=== PATIENT | male | born 1980 | race Hispanic/Latino ===

== ENCOUNTER → 2019-02-01 | Outpatient (CLI) | payer OTHER ==
[~2019-02-01] MED LIST: DIATRIZOATE MEGL/DIATRIZOA SOD 30 ML BTL PO ONE
--- NOTE | 2019-02-01 18:14 | Diagnostic Imaging Report ---
EXAM: CT Abdomen and Pelvis WITH contrast INDICATION: Abdominal Pain COMPARISON: None. TECHNIQUE: Abdomen and pelvis were scanned utilizing a multidetector helical scanner from the lung base to the pubic symphysis after administration of IV contrast. Coronal and sagittal reformations were obtained. Routine protocol was performed. Scan was performed when during portal venous phase. IV CONTRAST: 100 mL of Isovue 370 ORAL CONTRAST: Gastrografin COMPLICATIONS: None RADIATION DOSE: Total DLP: 354 mGy*cm Dose modulation, iterative reconstruction, and/or weight based adjustment of the mA/kV was utilized to reduce the radiation dose to as low as reasonably achievable. FINDINGS: LINES and TUBES: None. LOWER THORAX: Minimal dependent subsegmental atelectasis at both lung bases. No focal consolidation. HEPATOBILIARY: No evidence of focal lesion. No biliary ductal dilation. GALLBLADDER: No radio-opaque stones or sludge. No wall thickening. SPLEEN: No splenomegaly. PANCREAS: No focal masses or ductal dilatation. ADRENALS: No adrenal nodules KIDNEYS/URETERS: Kidneys enhance symmetrically. No evidence of hydronephrosis, solid mass, or stone. GI TRACT: Colonic diverticulosis with no CT evidence of diverticulitis. No evidence of wall thickening or distension. Appendix is normal. PELVIC ORGANS/BLADDER: Unremarkable. LYMPH NODES: No lymphadenopathy. VESSELS: Unremarkable. PERITONEUM / RETROPERITONEUM: No free air or fluid. BONES AND SOFT TISSUES: Unremarkable. CONCLUSION: Colonic diverticulosis with no CT evidence of diverticulitis. No acute findings in the abdomen or pelvis. Signed by: Mary Rosado MD on 02/01/2019 6:11 PM
--- NOTE | 2019-02-01 18:19 | Diagnostic Imaging Report ---
Exam: Bilateral testicular ultrasound. Clinical History: Testicular pain Findings: Sonographic evaluation of the testicles. Both testes are normal in echogenicity and size without intratesticular mass. The right testicle measures 4.0 x 2.1 x 2.7 cm and demonstrates normal blood flow. The right epididymis measures 0.9 x 0.8 x 0.7 cm and appears normal. The left testicle measures 3.8 x 2.1 x 2.6 cm and demonstrates normal blood flow. The left epididymis measures 0.7 x 0.7 x 0.7 cm and appears normal. There are small bilateral hydroceles, right greater than left. Small left varicocele. Impression: Normal symmetric blood flow and echotexture of both testes. Small bilateral hydroceles, right greater than left. Small left varicocele. Signed by: Mary Rosado MD on 02/01/2019 6:16 PM
== END ==
LOC: US 14:09
PROVIDERS: ATTEND Internal Medicine
DX: N45.2 Orchitis (principal); K57.32 Diverticulitis of large intestine without perforation or abscess without bleeding
CPT/HCPCS: 74177; 76870; 93976

== ENCOUNTER → 2019-03-03 | Day surgery (SDC) | payer OTHER ==
[~2019-03-03] MED LIST changes: -DIATRIZOATE MEGL/DIATRIZOA SOD 30 ML BTL PO ONE; +FENTANYL CITRATE/PF 100MCG/2 ML INJ ONE; +HYOSCYAMINE 0.125 MG TAB ONE; +MIDAZOLAM HCL 2 MG/2 ML VIAL ONE; +PROPOFOL IV EMULSION 10 MG/ML 50 ML VIAL ONE
--- OUTSIDE RECORDS SUMMARY | 2019-03-03 08:15 | XMS REPORT ---
Author Author [facility] Address Unknown Phone Unavailable Care Team Providers Care Can Dragger Name Role Phone Niko RODRIGUEZ Unavailable Unavailable Problems This patient has no known problems. Allergies, Adverse Reactions, Alerts This patient has no known allergies or adverse reactions. Medications This patient has no known medications. Results Test Description Test Time Test Comments Text Results Atomic Results Result Comments TESTICULAR 2019-02-01 18:12:00 [place] [address] Patient Name: BARRON RICARDO MR #: [id number] : 1980 Age/Sex: 38/M Req #: [id number] [facility] Physician: Ordered by: RULA RODRIGUEZ MD Report #: [id number] Location: Room/Bed: Procedure: [id number] US/US TESTICULAR Exam Date: 02/01/19 Exam Time: 1504 REPORT STATUS: Signed Exam: Bilateral testicular ultrasound. Clinical History: Testicular pain Findings: Sonographic evaluation of the testicles. Both testes are normal in echogenicity and size without intratesticular mass. The right testicle measures 4.0 x 2.1 x 2.7 cm and demonstrates normal blood flow. The right epididymis measures 0.9 x 0.8 x 0.7 cm and appears normal. The left testicle measures 3.8 x 2.1 x 2.6 cm and demonstrates normal blood flow. The left epididymis measures 0.7 x 0.7 x 0.7 cm and appears normal. There are small bilateral hydroceles, right greater than left. Small left varicocele. Impression: Normal symmetric blood flow and echotexture of both testes. Small bilateral hydroceles, right greater than left. Small left varicocele. Signed by: Jah Moy MD on 02/01/2019 6:16 PM Dictated By: JAH MOY MD 28 Transcribed By: QASIM on 02/03/191628 COPY TO: RULA RODRIGUEZ MD US TESTICULAR DOPPLER LTD 2019-02-01 18:12:00 [place] [address] Patient Name: BARRON RICARDO MR #: [id number] : 1980 Age/Sex: 38/M Req #: [id number] [facility] Physician: Ordered by: RULA RODRIGUEZ MD Report #: [id number] Location: Room/Bed: Procedure: [id number] US/US TESTICULAR DOPPLER LTD Exam Date: 02/01/19 Exam Time: 1504 REPORT STATUS: Signed Exam: Bilateral testicular ultrasound. Clinical History: Testicular pain Findings: Sonographic evaluation of the testicles. Both testes are normal in echogenicity and size without intratesticular mass. The right testicle measures 4.0 x 2.1 x 2.7 cm and demonstrates normal blood flow. The right epididymis measures 0.9 x 0.8 x 0.7 cm and appears normal. The left testicle measures 3.8 x 2.1 x 2.6 cm and demonstrates normal blood flow. The left epididymis measures 0.7 x 0.7 x 0.7 cm and appears normal. There are small bilateral hydroceles, right greater than left. Small left varicocele. Impression: Normal symmetric blood flow and echotexture of both testes. Small bilateral hydroceles, right greater than left. Small left varicocele. Signed by: Jah Moy MD on 02/01/2019 6:16 PM Dictated By: JAH MOY MD 28 Transcribed By: QASIM on 02/03/191628 COPY TO: RULA RODRIGUEZ MD CT ABDOMEN/PELVIS W 2019-02-01 18:01:00 [place] [address] Patient Name: BARRON RICARDO MR #: [id number] : 1980 Age/Sex: 38/M Req #: [id number] Physician: Ordered by: RULA RODRIGUEZ MD Report #: [id number] Location: Room/Bed: Procedure: [id number] CT/CT ABDOMEN/PELVIS W Exam Date: 02/01/19 Exam Time: 1655 REPORT STATUS: Signed EXAM: CT Abdomen and Pelvis WITH contrast INDICA TION: Abdominal Pain COMPARISON: None. TECHNIQUE: Abdomen and pelvis were scanned utilizing a multidetector helical scanner from the lung base to the pubic symphysis after administration of IV contrast. Coronal and sagittal reformations were obtained. Routine protocol was performed. Scan was performed when during portal venous phase. IV CONTRAST: 100 mL of Isovue 370 ORAL CONTRAST: Gastrografin COMPLICATIONS: None RADIATION DOSE: Total DLP: 354 mGy*cm Dose modulation, iterative reconstruction, and/or weight based adjustment of the mA/kV was utilized to reduce the radiation dose to as low as reasonably achievable. FINDINGS: LINES and TUBES: None. LOWER THORAX: Minimal dependent subsegmental atelectasis at both lung bases. No focal consolidation. HEPATOBILIARY: No evidence of focal lesion. No biliary ductal dilation. GALLBLADDER: No radio-opaque stones or sludge. No wall thickening. SPLEEN: No splenomegaly. PANCREAS: No focal masses or ductal dilatation. ADRENALS: No adrenal nodules KIDNEYS/URETERS: Kidneys enhance symmetrically. No evidence of hydronephrosis, solid mass, or stone. GI TRACT: Colonic diverticulosis with no CT evidence of diverticulitis. No evidence of wall thickening or distension. Appendix is normal. PELVIC ORGANS/BLADDER: Unremarkable. LYMPH NODES: No lymphadenopathy. VESSELS: Unremarkable. PERITONEUM / RETROPERITONEUM: No free air or fluid. BONES AND SOFT TISSUES: Unremarkable. CONCLUSION: Colonic di verticulosis with no CT evidence of diverticulitis. No acute findings in the abdomen or pelvis. Signed by: Jah Moy MD on 02/01/2019 6:11 PM Dictated By: JAH MOY MD 181 Transcribed By: QASIM on 02/01/191810 COPY TO: RULA RODRIGUEZ MD
[2019-03-03 13:15] VITALS: BP 111/69
--- NOTE | 2019-03-03 19:34 | Operative Report ---
DATE OF PROCEDURE: 03/03/2019 SURGEON: Claus Bullock MD PROCEDURE: Colonoscopy and biopsies. REFERRING PHYSICIAN: Dr. Anamaria Paige. INDICATIONS FOR PROCEDURES: Lower abdominal pain. MEDICATION: The patient was done under MAC, please see anesthesiologist's note. PROCEDURE IN DETAIL: With the patient in left lateral decubitus position, a flexible fiberoptic Olympus colonoscope was inserted into the rectum with ease and advanced all the way to the cecum. The scope was then withdrawn slowly. Mucosa overlying the cecum, ascending colon, transverse, and descending appeared to be within normal limits. There was some patchy areas of intense erythema and moderate edema noted in the sigmoid and rectum, biopsies were obtained. The scope was then retroflexed into the distal rectum and small internal hemorrhoids were noted, none of which was actively bleeding. The scope was then straightened out, it was subsequently withdrawn. The patient tolerated the procedure well. IMPRESSION: 1. Proctosigmoiditis, mild, biopsies obtained. 2. Internal hemorrhoids, none actively bleeding. PLAN: Follow up histology. Initiate Florastor one p.o. b.i.d. Claus Bullock MD [facility] [place] /[id number] cc: Dr. Anamaria Paige
== END | disposition home or self-care (01) ==
LOC: OR 08:13
PROVIDERS: ATTEND Internal Medicine Gastroenterology
DX: K63.89 Other specified diseases of intestine (principal); K57.90 Diverticulosis of intestine, part unspecified, without perforation or abscess without bleeding; K64.8 Other hemorrhoids; R03.0 Elevated blood-pressure reading, without diagnosis of hypertension; Z72.89 Other problems related to lifestyle; Z68.27 Body mass index [BMI] 27.0-27.9, adult; Z87.891 Personal history of nicotine dependence
CPT/HCPCS: 45380; J2250; J2704; J3010; 45378